=== PATIENT | male | born 1985 | race Caucasian/White ===

== ENCOUNTER 2021-04-19 03:59 | Emergency (ER) | payer OTHER ==
[~2021-04-19 03:59] MED LIST: ACTOS45 MG PO; AMBIEN5 MG PO; ANCEF 1 GM IV AD1 GM IV; CLARITIN10 M2 PO; FENOFIBRATE200 MG PO; JANUMET 50-1,01 EACH PO; JANUVIA100 MG PO; MERREM I.V. 50500 MG IV; METFORMIN HCL1000 MG PO; NORVASC5 MG PO; TIZANIDINE HCL2 M1 PO; VICTOZA 1818 MG/3 ML SQ; VIT D2 PO; ZYVOX IV 6600 MG/300 INJ
[2021-04-19 04:57] LABS: HEMOGLOBIN 14.5 gm/dl (14.0-17.5); RED BLOOD COUNT 4.83 M/UL (4.20-5.50); WHITE BLOOD COUNT 4.1 K/UL (4.5-11.0)
[2021-04-19 05:30] LABS: BUN/CREATININE RATIO 14 (0-10)
[2021-04-19] MEDS ORDERED: ZOFRAN ODT 4 MG4 MG PO (06:27)
== END 2021-04-19 09:08 | disposition home or self-care (01) ==
LOC: ER1 03:59
PROVIDERS: Physician Assistant
DX: Z23 Encounter for immunization (principal); U07.1 COVID-19; I12.9 Hypertensive chronic kidney disease with stage 1 through stage 4 chronic kidney disease, or unspecified chronic kidney disease; N18.9 Chronic kidney disease, unspecified; E11.22 Type 2 diabetes mellitus with diabetic chronic kidney disease; E66.01 Morbid (severe) obesity due to excess calories
CPT/HCPCS: 36600; 71045; 80053; 82550; 82553; 82803; 83874; 84484; 85025; 93005; 99285; M0243; U0002

== ENCOUNTER 2021-10-08 16:05 | Emergency (ER) | payer OTHER ==
[~2021-10-08 16:05] MED LIST changes: +ZOFRAN ODT 4 MG4 MG PO
[2021-10-08 17:44] LABS: HEMOGLOBIN 13.8 gm/dl (14.0-17.5); RED BLOOD COUNT 4.62 M/UL (4.20-5.50); WHITE BLOOD COUNT 12.3 K/UL (4.5-11.0)
== END 2021-10-08 20:20 | disposition home or self-care (01) ==
LOC: ER1 16:05
PROVIDERS: Physician Assistant Medical
DX: U07.1 COVID-19 (principal); N17.9 Acute kidney failure, unspecified; E11.9 Type 2 diabetes mellitus without complications; I10 Essential (primary) hypertension; E86.0 Dehydration
CPT/HCPCS: 0240U; 71045; 80053; 85025; 99284